=== PATIENT | female | born 1950 | race Caucasian/White ===

== ENCOUNTER 2016-07-17 09:23 | Outpatient (CLI) | payer MEDICARE ==
[2016-07-17 10:52] LABS: Bilirubin Negative (Negative); Blood, Urine Moderate (Negative); Clarity Slightly Cloudy (Clear); Glucose, Urine (Dipstick) Negative (Negative); Leukocyte Negative (Negative); Nitrite Negative (Negative); Protein, Urine (Dipstick) Negative (Neg-Trace); Urobilinogen 0.2 mg/dL (0.2-1.0)
[2016-07-17 13:15] LABS: Bacteria/HPF Rare-Few HPF (None Seen); RBC/HPF 0-3 HPF (0-3); WBC/HPF 0-3 HPF (0-3)
== END 2016-07-17 09:24 | disposition home or self-care (01) ==
LOC: HPCALD 09:23
PROVIDERS: ATTEND Family Medicine
DX: N39.41 Urge incontinence (principal)
CPT/HCPCS: 81001; 87086

== ENCOUNTER 2017-02-02 14:43 | Outpatient (CLI) | payer MEDICARE ==
--- NOTE | 2017-02-02 18:57 | RAD ---
THREE VIEWS LEFT FOOT: Indication: Left foot pain after injury in October 2016. Most pain is at the level of the distal 4th and 5th metatarsal. FINDINGS: There is a mild sized bunion and a moderate sized tailor bunion present. No acute fracture is eviden t. There is a mild great toe MTP osteoarthrosis. Lisfranc alignment is preserved. IMPRESSION: 1. Mild sized bunion and moderate sized tailor bunion present. 2. Mild great toe MTP Osteoarthrosis. 3. No acute fracture or subluxation demonstrated. POS: [facility]
== END 2017-02-02 14:44 | disposition home or self-care (01) ==
LOC: BURRAD 14:43
PROVIDERS: ATTEND Family Medicine
DX: M79.672 Pain in left foot (principal); M19.072 Primary osteoarthritis, left ankle and foot; M21.622 Bunionette of left foot

== ENCOUNTER 2017-08-25 09:20 | Outpatient (CLI) | payer MEDICARE ==
--- NOTE | 2017-08-25 16:54 | RAD ---
LEFT LEG TWO VIEWS 08/25/17 No fracture was seen. The tibia and fibula appear intact. There is a little periosteal or cortical th ickening in the upper tibia posteriorly, but this appears more likely old than new. There is some sof t tissue swelling over the area of the anterior tibial tubercle which I presume is where the recent t rauma occurred. IMPRESSION: No definite acute bony findings. POS: HOME
== END 2017-08-25 09:21 | disposition home or self-care (01) ==
LOC: BURRAD 09:20
PROVIDERS: ATTEND Physician Assistant
DX: S80.12XA Contusion of left lower leg, initial encounter (principal)

== ENCOUNTER 2018-02-23 10:58 | Outpatient (CLI) | payer MEDICARE, OTHER ==
--- NOTE | 2018-02-23 16:26 | CT ---
CT ABDOMEN AND PELVIS WITHOUT CONTRAST 02/23/[address] of the abdomen and pelvis was performed. No prior scans were available for comparison. Axial slices were acquired followed by coronal and sagittal reconstructions. The lung bases are clear. The liver, spleen, pancreas, adrenal glands, kidneys, and abdominal aorta w ere within normal limits of appearance given the limitations of a noncontrast study. A solitary large gallstone is seen in the gallbladder. There is no wall thickening. Regarding the urinary tract, the kidneys showed no mass, hydronephrosis or calculi. No ureteral calcu li or ureteral dilation was seen. No defects were seen in the urinary bladder within the limitations of a noncontrast study. There is a 5 x 3 cm cystic structure in the right adnexa. It indents the bladder from above but appea rs to be separate from it. It is judged to be an adnexal cyst rather than a bladder diverticulum. Whi le it has a rather benign appearance, adnexal cysts in this age group are always of concern for possi ble neoplasia, thus, gynecology followup is required. There is no free fluid, inflammatory change or other finding of concern in the pelvis. The lumbar spine showed no sign of herniated discs. Degenerative changes are minimal to none for age. The bowel shows no distention or wall thickening. There is no free air or free fluid. IMPRESSION: 1. 5 x 3 cm right adnexal cyst. Gynecological followup required. 2. No abnormalities of the urinary tract or lumbar spine to explain the patient's symptoms. 3. Incidental gallstone. POS: HOME
== END 2018-02-23 10:59 | disposition home or self-care (01) ==
LOC: BURCT 10:58
PROVIDERS: ATTEND Family Medicine
DX: Q62.6 Malposition of ureter (principal); R31.29 Other microscopic hematuria; M54.5 Low back pain; N83.8 Other noninflammatory disorders of ovary, fallopian tube and broad ligament
CPT/HCPCS: 74176

== ENCOUNTER 2018-07-12 10:39 | Outpatient (CLI) | payer MEDICARE, OTHER ==
--- NOTE | 2018-07-12 21:06 | RAD ---
CHEST TWO VIEWS: Date: 07-12-18 Comparison: None available. FINDINGS: The lungs are slightly hyperexpanded with mild flattening of the diaphragm. No infiltrate or effusion was seen. Minimal prominence of markings near the left costophrenic angle is thought to be due to th e patient being rotated slightly. There are no effusions. The heart size is normal. The mediastinum a ppears normal. IMPRESSION: Mildly hyperexpanded lungs, otherwise, no acute finding. POS: HOME
== END 2018-07-12 10:40 | disposition home or self-care (01) ==
LOC: BURRAD 10:39
PROVIDERS: ATTEND Family Medicine
DX: J40 Bronchitis, not specified as acute or chronic (principal); R07.89 Other chest pain
CPT/HCPCS: 71046

== ENCOUNTER 2018-07-26 13:19 | Outpatient (CLI) | payer MEDICARE, OTHER ==
--- NOTE | 2018-07-26 21:28 | CT ---
CT THORAX WITH CONTRAST: Date: 07-26-[address] of the chest was performed after an injection of IV contrast for evaluation of bronchitis a nd persistently not feeling well. FINDINGS: The lungs are clear. There is no sign of infiltrate, effusion, nodules or thickening. The mediastinum showed no mass or hematoma. The ascending aorta is slightly dilated measuring 3.3 cm in diameter. Th e significance of the finding is doubtful, however. I would note that there is a 4 mm hyperlucency in at least the right lobe of the thyroid gland. The l eft lobe is more difficult to be certain about. I would recommend an elective ultrasound to rule a cy st or hypoechoic nodule. Scans into the upper abdomen showed no abnormalities of the visible portions of the liver, spleen, an d pancreas. There does appear to be a 2 cm parapelvic cyst in the left kidney. There is a 4 mm noncalcified solitary nodule in the right upper lobe. Given its size, it carries a lo w probability of significance. Using Fleschner criteria, if there was a low probability of cancer els ewhere one might not even consider following it up. If there was higher suspicion of such, then one c ould optionally re-scan it in 6-12 months, closer to 12 months in most cases. An incidental finding on this study was a small amount of air in the main pulmonary artery. I suspect that this was introduced when the IV was being started. IMPRESSION: 1. Lungs clear with no parenchymal changes of concern. 2. 4 mm solitary noncalcified nodule in the right upper lobe. Low probability of significance. Need f or follow up is very low. See comments above. 3. Subcentimeter lucency in the right lobe of the thyroid gland. Consider elective ultrasound. 4. Trace of air in the main pulmonary artery, most likely due to the IV being started. POS: HOME
== END 2018-07-26 13:20 | disposition home or self-care (01) ==
LOC: BURCT 13:19
PROVIDERS: ATTEND Family Medicine
DX: Z01.818 Encounter for other preprocedural examination (principal); J40 Bronchitis, not specified as acute or chronic; R91.1 Solitary pulmonary nodule
CPT/HCPCS: 36415; 71260; 82565

== ENCOUNTER 2018-10-04 11:51 | Outpatient (CLI) | payer MEDICARE, OTHER ==
--- NOTE | 2018-10-04 21:04 | RAD ---
LEFT FOOT THREE VIEWS: 10/04/2018 COMPARISON: 02/02/2017 FINDINGS: No fracture or area of bony concern is found. The calcaneus appears normal. No spurring is seen. IMPRESSION: No acute findings. POS: HOME
== END 2018-10-04 11:52 | disposition home or self-care (01) ==
LOC: BURRAD 11:51
PROVIDERS: ATTEND Physician Assistant
DX: M79.672 Pain in left foot (principal)

== ENCOUNTER 2022-03-27 10:36 | Outpatient (CLI) | payer MEDICARE, OTHER | END 2022-03-27 10:37 | disposition home or self-care (01) | LOC: BURRAD 10:36 | PROVIDERS: ATTEND Family Medicine | DX: J20.9 Acute bronchitis, unspecified (principal); R06.02 Shortness of breath | CPT/HCPCS: 71046 ==

== ENCOUNTER 2022-07-17 11:54 | Outpatient (CLI) | payer MEDICARE, OTHER | END 2022-07-17 11:55 | disposition home or self-care (01) | LOC: BURRAD 11:54 | PROVIDERS: ATTEND Family Medicine | DX: M25.561 Pain in right knee (principal); M25.562 Pain in left knee ==